=== PATIENT | female | born 1950 | race Caucasian/White ===

== ENCOUNTER 2018-03-13 18:56 | Observation (INO) ==
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
[2018-03-13] MEDS ORDERED: *HR* OxyCODONE Immed Rel 5 MG TABLET PO ONE (20:38)
[2018-03-14] MEDS ORDERED: *HR* Dextrose 50 % in Water (Syg) 50 ML SYRINGE IVP PRN (00:09)
[2018-03-14] MEDS ORDERED: D5% in Water 1,000 ML IVC PRN (00:09)
[2018-03-14] MEDS ORDERED: Dextrose Gel 15 GM/37.5 ML TUBE PO PRN ×2 (00:09)
[2018-03-14] MEDS ORDERED: Naloxone 0.4 MG/ML INJ IVP PRN (00:09)
[2018-03-14] MEDS ORDERED: Ondansetron ODT 4 MG TAB.RAPDIS PO PRN (00:09)
[2018-03-14] MEDS: *HR* OxyCODONE Immed Rel 5 MG TABLET PO PRN ×2 (02:28→11:25)
[2018-03-14] MEDS: Insulin LISPRO 300 UNITS/3 ML VIAL SQ SCH ×3 (02:30→11:32)
[2018-03-14] MEDS ORDERED: Furosemide 40 MG TABLET PO SCH (09:00)
[2018-03-14] MEDS ORDERED: traMADol 50 MG TABLET PO SCH (09:00)
[2018-03-14] MEDS ORDERED: Gabapentin 300 MG CAPSULE PO SCH (09:00)
[2018-03-14] MEDS ORDERED: Spironolactone 25 MG TABLET PO SCH (09:00)
[2018-03-14] MEDS ORDERED: Topiramate 100 MG TABLET PO SCH (09:00)
[2018-03-14] MEDS: *HR* GlipiZIDE 5 MG TABLET PO SCH ×2 (09:13→11:33)
[2018-03-14 11:03] VITALS: BP 100/55
[2018-03-14] MEDS ORDERED: Methyl Salicylate/Menthol 28 GM TUBE TP ONE (13:46)
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
--- NOTE | 2018-03-14 14:12 | Discharge Summary ---
Date of Encounter: 03/14/18 Time of Encounter: 12:05 - Discharge Diagnosis (1) Compression fracture Priority: Primary Status: Acute Hospital course: Ms. White is a 67 year old female - Time Spent with Patient Total time spent providing and/or coordinating discharge services: - Discharge Medications Home Medications: Citalopram [CeleXA] 20 mg PO DAILY 03/13/18 [History] Furosemide [Lasix] 40 mg PO BID 03/13/18 [History] Gabapentin [Neurontin] 300 mg PO TID 03/13/18 [History] GlipiZIDE [Glipizide ER] 20 mg PO HS 03/13/18 [History] Omeprazole Magnesium [Prilosec Otc] 40 mg PO DAILY 03/13/18 [History] Ondansetron HCl [Zofran] 4 mg PO Q8HR PRN 03/13/18 [History] Oxybutynin Chloride [Ditropan Xl] 15 mg PO DAILY 03/13/18 [History] Spironolactone [Aldactone] 25 mg PO DAILY 03/13/18 [History] Topiramate [Topamax] 100 mg PO BID 03/13/18 [History] Tramadol HCl [Ultram] 50 mg PO BID 03/13/18 [History] glipiZIDE [Glipizide] 10 mg PO DAILY 03/13/18 [History] Allergies/Adverse Reactions: 3 Allergy/AdvReac Type Severity Reaction Status Date / Time ibuprofen [From Motrin] Allergy Anaphylaxis Verified 03/13/18 19:00 Penicillins [PCN] Allergy Hives Verified 03/13/18 19:00 Date of admission: 03/13/18 23:14 Primary care physician: PCP NONE Consults: 03/14/18 01:42 Consult to Nutrition [CONS] Routine Comment: Consulting Provider: NUTRITION Reason for Dietary Consult: MST Score Consult to Saddle Stitching Machine Operator [CONS] Routine Reason for SW Consult: follow up care - therapy - Constitutional Vitals: Temp Pulse Resp BP Pulse Ox 98.2 F 58 18 100/55 94 03/14/18 10:59 03/14/18 10:59 03/14/18 10:59 03/14/18 10:59 03/14/18 10:59 - Patient Status Disposition: Home, Self-Care Condition: Fair - Discharge Instructions Follow Up With: NONE,PCP [Primary Care Provider] - 1 week - Diet and Activity Diet: advance to your usual diet
[2018-03-14] MEDS ORDERED: *HR* GlipiZIDE 5 MG TABLET PO SCH (21:00)
== END 2018-03-14 16:35 | disposition home or self-care (01) ==
LOC: INPPIK 18:56 → EMEROOPIK 18:56 → INPPIK 23:41
PROVIDERS: ADMIT Internal Medicine; ATTEND Internal Medicine